=== PATIENT | female | born 1955 | race Caucasian/White ===

== ENCOUNTER 2017-05-09 15:58 | Emergency (ER) | payer MEDICARE, OTHER ==
[~2017-05-09] VITALS: Ht 160 cm; Wt 107.0 kg
[~2017-05-09 15:58] MED LIST: CALC.25 PO; Carisoprodol350 MG PO; ERGO400 PO; ESCI20 PO; ESCITALOPRAM OX20 MG PO; EXEN10PI; LORA.5 PO; Miralax17 GM PO; Neurontin 100100 MG PO; OXYACE5T PO; OXYC30 PO; OXYC5 PO; PROM25 PO
[2017-05-09] MEDS ORDERED: TRULICITY1.5 MG/0.5 SC (16:34)
[2017-05-09] MEDS ORDERED: HYDMOR8 PO (16:38)
[2017-05-09 16:50] LABS: BASOPHILS ABSOLUTE AUTO 0.04 K/mm3 (0.00-0.23); BASOPHILS PERCENT AUTO 1 % (0-2); EOSINOPHILS ABSOLUTE AUTO 0.17 K/mm3 (0.00-0.68); EOSINOPHILS PERCENT AUTO 3 % (0-6); Hematocrit 37.1 % (33.0-51.0); Hemoglobin 11.7 g/dL (11.5-16.0); IMMATURE GRAN ABSOLUTE AUTO 0.01 K/mm3 (0.00-0.10); IMMATURE GRAN PERCENT AUTO 0 % (0-1); LYMPHOCYTES ABSOLUTE AUTO 1.52 K/mm3 (0.84-5.20); LYMPHOCYTES PERCENT AUTO 25 % (21-46); MONOCYTES ABSOLUTE AUTO 0.43 K/mm3 (0.16-1.47); MONOCYTES PERCENT AUTO 7 % (4-13); Mean Corpuscular HGB 26.5 pg (26.0-34.0); Mean Corpuscular HGB Conc 31.5 g/dL (31.5-36.5); Mean Corpuscular Volume 84 fL (80-100); Mean Platelet Volume 9.9 fL (9.1-12.4); NEUTROPHILS ABSOLUTE AUTO 3.98 K/mm3 (1.96-9.15); NEUTROPHILS PERCENT AUTO 65 % (41-73); Platelet Count 297 K/mm3 (150-400); RDW Coefficient Variation 14.3 % (11.7-14.2); RDW Standard Deviation 43.9 fL (35.1-46.3); Red Blood Cell Count 4.42 M/mm3 (3.80-5.20); White Blood Cell Count 6.15 K/mm3 (4.00-11.30)
[2017-05-09 17:07] LABS: Alanine Aminotransfer (ALT/SGP 27 U/L (12-78); Albumin, Blood 2.9 g/dL (3.4-5.0); Albumin/Globulin Ratio 0.8 (0.8-1.8); Alk Phos 79 U/L (50-136); Anion Gap 8 mmol/L (6-16); Aspartate Aminotrans (AST/SGOT 15 U/L (12-37); Bilirubin, Total 0.6 mg/dL (0.1-1.0); Blood Urea Nitrogen 19 mg/dL (8-24); Bun/Creatinine Ratio 18.4 (12.0-20.0); CO2, Blood 23 mmol/L (21-32); Calcium, Blood 8.4 mg/dL (8.5-10.1); Chloride, Blood 108 mmol/L (98-108); Creatinine, Blood 1.03 mg/dL (0.40-1.00); Globulin, Blood 3.6 g/dL (2.2-4.0); Glomerular Filtration Rate 58 (60-); Glucose, Blood 110 mg/dL (70-99); Potassium, Blood 4.3 mmol/L (3.5-5.5); Sodium, Blood 139 mmol/L (136-145); Total Protein, Blood 6.5 g/dL (6.4-8.2); Troponin I <0.015 ng/mL (0.000-0.040)
[2017-05-09] MEDS ORDERED: ELIQUIS5 MG PO (18:11)
[2017-05-09] MEDS ORDERED: Flecainide Acet50 MG PO (18:12)
[2017-05-09] MEDS ORDERED: METO25ER PO (18:12)
== END 2017-05-09 18:48 | disposition home or self-care (01) ==
LOC: ER 15:58
PROVIDERS: Emergency Medicine
DX: R00.0 Tachycardia, unspecified (principal); E11.9 Type 2 diabetes mellitus without complications; I10 Essential (primary) hypertension; Z88.5 Allergy status to narcotic agent; Z88.1 Allergy status to other antibiotic agents; Z91.048 Other nonmedicinal substance allergy status; Z79.899 Other long term (current) drug therapy
CPT/HCPCS: 36415; 71046; 80053; 83735; 83880; 84484; 85025; 93005; 93010; 99283

== ENCOUNTER 2017-05-15 07:05 | Day surgery (SDC) | payer MEDICARE, OTHER ==
[~2017-05-15] VITALS: Ht 157.5 cm; Wt 108.0 kg
[~2017-05-15 07:05] MED LIST changes: +ELIQUIS5 MG PO; +Flecainide Acet50 MG PO; +HYDMOR8 PO; +METO25ER PO; +TRULICITY1.5 MG/0.5 SC
[2017-05-15] MEDS ORDERED: BACL10 PO (07:32)
[2017-05-15] MEDS ORDERED: TRAZ50 PO (07:33)
[2017-05-15] MEDS ORDERED: Amiodarone HCl400 MG PO (09:36)
== END 2017-05-15 22:39 | disposition home or self-care (01) ==
LOC: MHTC 07:05
PROC: 5A2204Z Restoration of Cardiac Rhythm, Single (ICD-10-PCS; principal; 2017-05-15)
DX: I48.92 Unspecified atrial flutter (principal); I48.0 Paroxysmal atrial fibrillation; I10 Essential (primary) hypertension; E11.9 Type 2 diabetes mellitus without complications; E78.5 Hyperlipidemia, unspecified; E66.01 Morbid (severe) obesity due to excess calories; Z98.84 Bariatric surgery status; J44.9 Chronic obstructive pulmonary disease, unspecified; Z87.891 Personal history of nicotine dependence
CPT/HCPCS: 92960; 93005; 93010; 94640; J0282; J7120

== ENCOUNTER → 2017-07-01 | Outpatient (CLI) | payer MEDICARE, OTHER ==
[~2017-07-01] MED LIST changes: +Amiodarone HCl400 MG PO; +BACL10 PO; +TRAZ50 PO
== END | disposition home or self-care (01) ==
LOC: LAB SHORT 09:56 → PLD 09:56
DX: D22.62 Melanocytic nevi of left upper limb, including shoulder (principal)
CPT/HCPCS: 88305

== ENCOUNTER → 2017-08-20 | Outpatient (CLI) | payer MEDICARE, OTHER ==
[2017-08-20 13:04] LABS: Source, Urine Catheter
[2017-08-20 13:45] LABS: Bilirubin, Urine Neg (Neg); Blood, Urine Neg (Neg); Glucose Qualitative, Urine Neg (Neg); Ketones, Urine Neg (Neg); Leukocyte Esterase, Urine Neg (Neg); Nitrite, Urine Neg (Neg); Protein, Urine Neg (Neg); Urobilinogen, Urine NORM (Normal)
[2017-08-20 14:08] LABS: Appearance, Urine Clear (Clear); Color, Urine Yellow (P-Yellow)
== END ==
LOC: LAB 13:03 → LAB SHORT 13:03
PROVIDERS: Obstetrics & Gynecology Gynecology
DX: N39.41 Urge incontinence (principal)
CPT/HCPCS: 81003

== ENCOUNTER → 2017-09-25 | Outpatient (CLI) | payer MEDICARE, OTHER ==
[2017-09-25 12:28] LABS: Source, Urine Clean Catch
[2017-09-25 14:31] LABS: Appearance, Urine Cloudy (Clear); Bilirubin, Urine Neg (Neg); Blood, Urine 5+ (Neg); Color, Urine Yellow (P-Yellow); Glucose Qualitative, Urine Neg (Neg); Ketones, Urine Neg (Neg); Leukocyte Esterase, Urine 3+ (Neg); Nitrite, Urine Neg (Neg); Protein, Urine 2+ (Neg); Urobilinogen, Urine NORM (Normal); pH, Urine 6.5 (5.0-8.0)
[2017-09-25 14:51] LABS: Red Blood Cells, Urine 25-50 /hpf (0-2); White Blood Cells, Urine 50-100 /hpf (0-5)
[2017-09-25 14:52] LABS: Bacteria Few /hpf; Squamous Epithelial Cells Rare /hpf (Few)
== END ==
LOC: LAB SHORT 12:10 → LAB 12:10
PROVIDERS: Obstetrics & Gynecology Gynecology
DX: R39.15 Urgency of urination (principal)
CPT/HCPCS: 81001; 87077; 87086; 87186

== ENCOUNTER 2018-03-09 06:01 | Emergency (ER) | payer MEDICARE, OTHER ==
[~2018-03-09] VITALS: Ht 162.6 cm; Wt 97.5 kg
[2018-03-09 07:20] LABS: BASOPHILS ABSOLUTE AUTO 0.04 K/mm3 (0.00-0.23); BASOPHILS PERCENT AUTO 1 % (0-2); EOSINOPHILS ABSOLUTE AUTO 0.17 K/mm3 (0.00-0.68); EOSINOPHILS PERCENT AUTO 2 % (0-6); Hematocrit 42.2 % (33.0-51.0); Hemoglobin 13.5 g/dL (11.5-16.0); IMMATURE GRAN ABSOLUTE AUTO 0.04 K/mm3 (0.00-0.10); IMMATURE GRAN PERCENT AUTO 1 % (0-1); LYMPHOCYTES ABSOLUTE AUTO 1.46 K/mm3 (0.84-5.20); LYMPHOCYTES PERCENT AUTO 18 % (21-46); MONOCYTES ABSOLUTE AUTO 0.42 K/mm3 (0.16-1.47); MONOCYTES PERCENT AUTO 5 % (4-13); Mean Corpuscular HGB 28.3 pg (26.0-34.0); Mean Corpuscular Volume 89 fL (80-100); Mean Platelet Volume 10.3 fL (9.1-12.4); NEUTROPHILS ABSOLUTE AUTO 6.14 K/mm3 (1.96-9.15); NEUTROPHILS PERCENT AUTO 74 % (41-73); Platelet Count 237 K/mm3 (150-400); RDW Coefficient Variation 13.8 % (11.7-14.2); RDW Standard Deviation 44.5 fL (35.1-46.3); Red Blood Cell Count 4.77 M/mm3 (3.80-5.20); White Blood Cell Count 8.27 K/mm3 (4.00-11.30)
[2018-03-09 07:32] LABS: Anion Gap 7 mmol/L (6-16); Blood Urea Nitrogen 14 mg/dL (8-24); Bun/Creatinine Ratio 13.5 (12.0-20.0); CO2, Blood 28 mmol/L (21-32); Chloride, Blood 108 mmol/L (98-108); Creatinine, Blood 1.04 mg/dL (0.40-1.00); Glomerular Filtration Rate 57 (60-); Glucose, Blood 127 mg/dL (70-99); Potassium, Blood 4.3 mmol/L (3.5-5.5); Sodium, Blood 143 mmol/L (136-145); Troponin I <0.015 ng/mL (0.000-0.040)
[2018-03-09 08:09] LABS: Bilirubin, Urine Neg (Neg); Blood, Urine 1+ (Neg); Glucose Qualitative, Urine Neg (Neg); Ketones, Urine Neg (Neg); Leukocyte Esterase, Urine 1+ (Neg); Nitrite, Urine Neg (Neg); Protein, Urine 2+ (Neg); Specific Gravity, Urine 1.015 (1.003-1.022); Urobilinogen, Urine NORM (Normal)
[2018-03-09 08:21] LABS: Appearance, Urine Clear (Clear); Color, Urine Yellow (P-Yellow)
[2018-03-09 09:21] LABS: Red Blood Cells, Urine 0-2 /hpf (0-2); Squamous Epithelial Cells Few /hpf (Few); White Blood Cells, Urine 0-2 /hpf (0-5)
[2018-03-09 09:22] LABS: Bacteria Few /hpf
[2018-03-09 09:26] LABS: Other Crystals Many /hpf
[2018-03-09] MEDS ORDERED: METO25 PO (11:13)
[2018-03-09] MEDS ORDERED: TRAZ50 PO (11:14)
[2018-03-09] MEDS ORDERED: ALEN70 PO (11:14)
[2018-03-09] MEDS ORDERED: OXYMORPHONE HCL5 MG PO (11:14)
[2018-03-09] MEDS ORDERED: Tambocor100 MG PO (11:16)
[2018-03-09] MEDS ORDERED: FLUC100 PO (11:17)
== END 2018-03-09 14:50 | disposition short-term general hospital (02) ==
LOC: ER 06:01
PROVIDERS: Emergency Medicine
DX: I62.01 Nontraumatic acute subdural hemorrhage (principal); I48.91 Unspecified atrial fibrillation; E11.9 Type 2 diabetes mellitus without complications; I10 Essential (primary) hypertension; M19.90 Unspecified osteoarthritis, unspecified site; F17.200 Nicotine dependence, unspecified, uncomplicated; Z91.048 Other nonmedicinal substance allergy status; Z88.5 Allergy status to narcotic agent; Z88.1 Allergy status to other antibiotic agents; Z88.8 Allergy status to other drugs, medicaments and biological substances; Z79.899 Other long term (current) drug therapy; Z79.01 Long term (current) use of anticoagulants
CPT/HCPCS: 36415; 70450; 71045; 72070; 80048; 81001; 84484; 85025; 87086; 87147; 93005; 93010; 96361; 96374; 96375; 99285-25; J1885; J2405; J3010; J7030

== ENCOUNTER 2018-05-06 17:24 | Inpatient (IN) | payer MEDICARE, OTHER ==
[~2018-05-06] VITALS: Ht 160 cm; Wt 93.6 kg
[~2018-05-06 17:24] MED LIST changes: -ATOR20 PO; -Cyclobenzaprine5 MG PO; -OMEPRAZOLE MAGN20 MG PO; -THERA1 EACH PO
[2018-05-06 19:45] LABS: Calcium, Ionized (POC) 1.08 mmol/L (1.10-1.46); Chloride (POC) 85 mmol/L (98-108); Creatinine (POC) 0.9 mg/dL (0.6-1.0); Glucose (ISTAT POC) 119 mg/dL (70-99); Hemoglobin (POC) 14.3 g/dL (12.0-16.0); Potassium (POC) 4.8 mmol/L (3.5-5.5); Sodium (POC) 120 mmol/L (135-148); Total CO2 (POC) 25 mmol/L (21-32)
[2018-05-06] MEDS ORDERED: Cyclobenzaprine5 MG PO (21:29)
[2018-05-06] MEDS ORDERED: ATOR20 PO (21:31)
[2018-05-06 21:35] LABS: Magnesium, Blood 1.8 mg/dL (1.6-2.4); Uric Acid, Blood 3.6 mg/dL (2.6-6.0)
[2018-05-06] MEDS ORDERED: OMEPRAZOLE MAGN20 MG PO (21:38)
[2018-05-06] MEDS ORDERED: THERA1 EACH PO (22:11)
[2018-05-06 22:41] LABS: Source, Urine Clean Catch
[2018-05-06 22:46] LABS: Bilirubin, Urine Neg (Neg); Blood, Urine 1+ (Neg); Glucose Qualitative, Urine Neg (Neg); Ketones, Urine 3+ (Neg); Leukocyte Esterase, Urine Neg (Neg); Nitrite, Urine Neg (Neg); Protein, Urine 1+ (Neg); Specific Gravity, Urine 1.015 (1.003-1.022); Urobilinogen, Urine NORM (Normal)
[2018-05-06 22:51] LABS: Appearance, Urine Clear (Clear); Color, Urine Yellow (P-Yellow)
[2018-05-06 22:53] LABS: Bacteria Rare /hpf; Red Blood Cells, Urine 0-2 /hpf (0-2); Squamous Epithelial Cells Few /hpf (Few); White Blood Cells, Urine Not Seen /hpf (0-5)
--- NOTE | 2018-05-07 01:18 | NUR ---
UPDATE PATIENT SODIUM AT 121. CHARGE NURSE JONATHAN HUDSON AWARE AND SATED THERE WAS NO NEED TO NOTIFY THE DR AT THIS TIME. WE WILL CONTINUE TO MONITOR AT THIS TIME.
[2018-05-07 04:52] LABS: Anion Gap 10 mmol/L (6-16); Blood Urea Nitrogen 13 mg/dL (8-24); Bun/Creatinine Ratio 17.2 (12.0-20.0); CO2, Blood 21 mmol/L (21-32); Calcium, Blood 7.9 mg/dL (8.5-10.1); Chloride, Blood 92 mmol/L (98-108); Creatinine, Blood 0.76 mg/dL (0.40-1.00); Glomerular Filtration Rate >60 (60-); Glucose, Blood 102 mg/dL (70-99); Sodium, Blood 123 mmol/L (136-145)
[2018-05-07 04:54] LABS: Troponin I <0.015 ng/mL (0.000-0.040)
--- NOTE | 2018-05-07 06:31 | NUR ---
SHIFT SUMMARY PATIENT ADMITTED EARLIER THIS SHIFT. PATIENT PLEASENT AND COOPERATIVE UPON ADMIT. PATIENT ABLE TO AMBULATE INTO THE BATHROOM WITH ONE PERSON ASSIST. HOWEVER, PATIENT DOES REPORT THE SHE, "GOT A LITTLE DIZZY" WHILE SHE WAS UP. PATIENT ON RA THROUGHOUT THE NIGHT. PATIETN APPEARED TO SLEEP WELL LAST NIGHT. IV FLUIDS GIVEN PER EMAR. VITAL SIGNS CHARTED. WILL CONTINUE TO MONITOR PATIENT AND REPORT TO ONCOMING RN.
--- NOTE | 2018-05-07 17:32 | NUR ---
SHIFT SUMMARY PT ALERT AND ORIENTED. VITAL SIGNS STABLE. PT ABLE TO TRANSFER TO BATHROOM NEEDED WITH SBA. PT WORKED WITH OT TODAY. NA OF 123 THIS MORNING. SODIUM REPLACEMENT CHANGED FROM IV TO ORAL SEE EMAR. PT COMPLAINED OF NAUSEA THIS SHIFT, BUT NO VOMITTING. NO OTHER CHANGES SINCE INITIAL ASSESSMENT. WILL CONTINUE TO MONITOR AND REPORT TO ONCOMING RN. CALL LIGHT IN REACH.
[2018-05-08 04:18] LABS: Anion Gap 8 mmol/L (6-16); Blood Urea Nitrogen 10 mg/dL (8-24); Bun/Creatinine Ratio 12.1 (12.0-20.0); CO2, Blood 23 mmol/L (21-32); Calcium, Blood 8.1 mg/dL (8.5-10.1); Chloride, Blood 101 mmol/L (98-108); Creatinine, Blood 0.82 mg/dL (0.40-1.00); Glomerular Filtration Rate >60 (60-); Glucose, Blood 111 mg/dL (70-99); Potassium, Blood 3.8 mmol/L (3.5-5.5); Sodium, Blood 132 mmol/L (136-145)
--- NOTE | 2018-05-08 07:12 | NUR ---
SHIFT SUMMARY PATIENT PLEASENT LAST NIGHT. PATIENT APPEARED TO SLEEP WELL THROUGHOUT THE NIGHT WITH NO COMPLAINTS OF PAIN. PATIENT UP TO THE BSC SEVERAL TIMES WITH SBA. VITAL SIGNS CHARTED. WILL CONTINUE TO MONITOR PATIENT AND REPORT TO ONCOMING RN.
[2018-05-08] MEDS ORDERED: Oxcarbazepine300 MG PO (07:45)
--- NOTE | 2018-05-08 14:52 | NUR ---
PT GIVEN DISCHARGE INSTRUCTIONS. NO NEW MEDICATIONS. PT EDUCATED ABOUT HYPONATREMIA SIGNS/ SYMPTOMS AND WHEN TO RETURN. IV REMOVED AND INTACT. ALL QUESTIONS ANSWERED. PT ABLE TO LEAVE BY AMBULATION.
== END 2018-05-08 14:50 | disposition home or self-care (01) | DRG 644 ==
LOC: ER 17:24 → PCU 21:12
PROVIDERS: Emergency Medicine; Internal Medicine; Nurse Practitioner Acute Care; ADMIT Hospitalist
DX: E22.2 Syndrome of inappropriate secretion of antidiuretic hormone (principal); S22.070A Wedge compression fracture of T9-T10 vertebra, initial encounter for closed fracture; G50.0 Trigeminal neuralgia; M79.7 Fibromyalgia; M19.90 Unspecified osteoarthritis, unspecified site; I48.0 Paroxysmal atrial fibrillation; E86.0 Dehydration; N18.3 Chronic kidney disease, stage 3 (moderate); E11.22 Type 2 diabetes mellitus with diabetic chronic kidney disease; I12.9 Hypertensive chronic kidney disease with stage 1 through stage 4 chronic kidney disease, or unspecified chronic kidney disease; Z79.84 Long term (current) use of oral hypoglycemic drugs; T42.1X5A Adverse effect of iminostilbenes, initial encounter; Y92.9 Unspecified place or not applicable
CPT/HCPCS: 36415; 70450; 71046; 80047; 80048; 81001; 82330; 82947; 83735; 83930; 83935; 84295; 84300; 84484; 84550; 85014; 93005; 93010; 96361; 96374; 97161; 97165; 97530; 97535; 99285-25; J2405; J2765; J3475; J7030

== ENCOUNTER → 2018-05-06 | Outpatient (CLI) | payer MEDICARE, OTHER ==
[~2018-05-06] MED LIST changes: +ALEN70 PO; +ATOR20 PO; +Cyclobenzaprine5 MG PO; +FLUC150A PO; +GABA400 PO; +METO25 PO; -Neurontin 100100 MG PO; +OMEPRAZOLE MAGN20 MG PO; +OXYMORPHONE HCL5 MG PO; +THERA1 EACH PO; +Tambocor100 MG PO
[2018-05-06 15:08] LABS: BASOPHILS ABSOLUTE AUTO 0.02 K/mm3 (0.00-0.23); BASOPHILS PERCENT AUTO 0 % (0-2); EOSINOPHILS ABSOLUTE AUTO 0.02 K/mm3 (0.00-0.68); EOSINOPHILS PERCENT AUTO 0 % (0-6); Hematocrit 42.4 % (33.0-51.0); Hemoglobin 15.1 g/dL (11.5-16.0); IMMATURE GRAN ABSOLUTE AUTO 0.02 K/mm3 (0.00-0.10); IMMATURE GRAN PERCENT AUTO 0 % (0-1); LYMPHOCYTES ABSOLUTE AUTO 1.34 K/mm3 (0.84-5.20); LYMPHOCYTES PERCENT AUTO 19 % (21-46); MONOCYTES ABSOLUTE AUTO 0.34 K/mm3 (0.16-1.47); MONOCYTES PERCENT AUTO 5 % (4-13); Mean Corpuscular HGB 28.4 pg (26.0-34.0); Mean Corpuscular HGB Conc 35.6 g/dL (31.5-36.5); Mean Corpuscular Volume 80 fL (80-100); Mean Platelet Volume 9.9 fL (9.1-12.4); NEUTROPHILS ABSOLUTE AUTO 5.46 K/mm3 (1.96-9.15); NEUTROPHILS PERCENT AUTO 76 % (41-73); Platelet Count 307 K/mm3 (150-400); RDW Coefficient Variation 12.9 % (11.7-14.2); RDW Standard Deviation 36.3 fL (35.1-46.3); Red Blood Cell Count 5.31 M/mm3 (3.80-5.20)
[2018-05-06 15:21] LABS: Alanine Aminotransfer (ALT/SGP 36 U/L (12-78); Albumin, Blood 3.8 g/dL (3.4-5.0); Albumin/Globulin Ratio 0.9 (0.8-1.8); Alk Phos 132 U/L (40-126); Aspartate Aminotrans (AST/SGOT 27 U/L (12-37); Bilirubin, Total 1.1 mg/dL (0.1-1.0); Blood Urea Nitrogen 16 mg/dL (8-24); Bun/Creatinine Ratio 12.9 (12.0-20.0); CO2, Blood 23 mmol/L (21-32); Calcium, Blood 8.9 mg/dL (8.5-10.1); Chloride, Blood 83 mmol/L (98-108); Creatinine, Blood 1.24 mg/dL (0.40-1.00); Globulin, Blood 4.3 g/dL (2.2-4.0); Glomerular Filtration Rate 44 (60-); Glucose, Blood 147 mg/dL (70-99); Total Protein, Blood 8.1 g/dL (6.4-8.2)
[2018-05-06 15:40] LABS: Anion Gap 12 mmol/L (6-16)
[2018-05-06 15:41] LABS: Troponin I <0.017 ng/mL (0.000-0.040)
[2018-05-06 15:43] LABS: Sodium, Blood 118 mmol/L (136-145)
== END | disposition home or self-care (01) ==
LOC: LAB SHORT 15:02 → LAB EV 15:02
PROVIDERS: Physician Assistant
DX: R10.13 Epigastric pain (principal)
CPT/HCPCS: 80053; 83690; 84484; 85025

== ENCOUNTER → 2018-07-16 | Outpatient (CLI) | payer MEDICARE, OTHER ==
[~2018-07-16] MED LIST changes: +ATOR20 PO; +Cyclobenzaprine5 MG PO; +OMEPRAZOLE MAGN20 MG PO; +Oxcarbazepine300 MG PO; +THERA1 EACH PO
[2018-07-16 14:40] LABS: Source, Urine Clean Catch
[2018-07-16 16:50] LABS: Appearance, Urine Hazy (Clear); Blood, Urine 2+ (Neg); Glucose Qualitative, Urine Neg (Neg); Ketones, Urine Neg (Neg); Leukocyte Esterase, Urine Neg (Neg); Nitrite, Urine Pos (Neg); Protein, Urine 1+ (Neg); Urobilinogen, Urine 3+ (Normal)
[2018-07-16 17:19] LABS: Bilirubin, Urine 2+ (Neg); Color, Urine Orange (P-Yellow)
[2018-07-16 17:40] LABS: White Blood Cells, Urine 25-50 /hpf (0-5)
[2018-07-16 18:00] LABS: Red Blood Cells, Urine 0-2 /hpf (0-2)
[2018-07-16 18:01] LABS: Bacteria Many /hpf; Squamous Epithelial Cells Few /hpf (Few)
[2018-07-16 18:04] LABS: Hyaline Casts 0-2 /lpf (0-2); Transitional Epithelial Cells Few /hpf (0-Rare)
== END | disposition home or self-care (01) ==
LOC: LAB 14:30 → LAB SHORT 14:30
PROVIDERS: Obstetrics & Gynecology Gynecology
DX: R39.15 Urgency of urination (principal)
CPT/HCPCS: 81001; 87077; 87086; 87147; 87186

== ENCOUNTER → 2018-08-05 | Outpatient (CLI) | payer MEDICARE, OTHER ==
[~2018-08-05] MED LIST changes: +HYDR1TAB94 PO
[2018-08-07 14:06] LABS: HPV 16 Negative (Negative); HPV 18 Negative (Negative); HPV OTHER HR TYPES Negative (Negative)
== END | disposition home or self-care (01) ==
LOC: LAB SHORT 18:34 → LAB 18:34
PROVIDERS: Nurse Practitioner Women's Health
DX: Z12.4 Encounter for screening for malignant neoplasm of cervix (principal); E66.01 Morbid (severe) obesity due to excess calories; Z91.89 Other specified personal risk factors, not elsewhere classified
CPT/HCPCS: 87624; G0123

== ENCOUNTER 2018-09-05 11:29 | Emergency (ER) | payer MEDICARE, OTHER ==
[~2018-09-05] VITALS: Ht 160 cm; Wt 93.0 kg
[~2018-09-05 11:29] MED LIST changes: -HYDR1TAB94 PO
[2018-09-05] MEDS ORDERED: HYDR1TAB94 PO (13:37)
== END 2018-09-05 14:15 | disposition home or self-care (01) ==
LOC: ER 11:29
DX: S42.202A Unspecified fracture of upper end of left humerus, initial encounter for closed fracture (principal); M85.812 Other specified disorders of bone density and structure, left shoulder; M19.90 Unspecified osteoarthritis, unspecified site; E11.9 Type 2 diabetes mellitus without complications; I10 Essential (primary) hypertension; F17.200 Nicotine dependence, unspecified, uncomplicated; Z91.048 Other nonmedicinal substance allergy status; Z88.5 Allergy status to narcotic agent; Z88.8 Allergy status to other drugs, medicaments and biological substances; Z88.1 Allergy status to other antibiotic agents; Z79.899 Other long term (current) drug therapy; W18.30XA Fall on same level, unspecified, initial encounter
CPT/HCPCS: 36415; 73030; 73080; 96372-59; 96374; 96375; 99283-25; J1170; J2405

== ENCOUNTER 2018-09-09 21:29 | Emergency (ER) | payer MEDICARE, OTHER ==
[~2018-09-09] VITALS: Ht 162.6 cm; Wt 96.2 kg
[~2018-09-09 21:29] MED LIST changes: +HYDR1TAB94 PO
== END 2018-09-09 23:35 | disposition home or self-care (01) ==
LOC: ER 21:29
DX: S09.90XA Unspecified injury of head, initial encounter (principal); S42.212A Unspecified displaced fracture of surgical neck of left humerus, initial encounter for closed fracture; S42.252A Displaced fracture of greater tuberosity of left humerus, initial encounter for closed fracture; S42.262A Displaced fracture of lesser tuberosity of left humerus, initial encounter for closed fracture; W19.XXXA Unspecified fall, initial encounter; Z91.048 Other nonmedicinal substance allergy status; Z88.5 Allergy status to narcotic agent; Z88.8 Allergy status to other drugs, medicaments and biological substances; Z88.1 Allergy status to other antibiotic agents; Z79.899 Other long term (current) drug therapy; E11.9 Type 2 diabetes mellitus without complications; I10 Essential (primary) hypertension
CPT/HCPCS: 70450; 73030; 96374; 96375; 99284-25; J1170; J3010

== ENCOUNTER 2018-09-14 09:52 | Emergency (ER) | payer MEDICARE, OTHER ==
[~2018-09-14] VITALS: Ht 162.6 cm; Wt 94.8 kg
== END 2018-09-14 13:45 | disposition home or self-care (01) ==
LOC: ER 09:52
DX: K59.00 Constipation, unspecified (principal); Z88.8 Allergy status to other drugs, medicaments and biological substances; Z88.5 Allergy status to narcotic agent; Z88.1 Allergy status to other antibiotic agents; Z91.048 Other nonmedicinal substance allergy status; Z79.899 Other long term (current) drug therapy; E11.9 Type 2 diabetes mellitus without complications; I10 Essential (primary) hypertension; F17.210 Nicotine dependence, cigarettes, uncomplicated
CPT/HCPCS: 74018; 99283-25

== ENCOUNTER → 2019-02-08 | Outpatient (CLI) | payer MEDICARE, OTHER ==
[2019-02-08 12:56] LABS: Calcium, Urine <5.0 mg/dL (< 17.5); Calcium, Urine Calculation Unable to Calculate mg/24hrs (42.0-353.0)
== END | disposition home or self-care (01) ==
LOC: LAB 10:31 → LAB SHORT 10:31 → LAB FUT 01-19 14:05
PROVIDERS: Internal Medicine Endocrinology, Diabetes & Metabolism
DX: E21.3 Hyperparathyroidism, unspecified (principal); M81.0 Age-related osteoporosis without current pathological fracture; E11.3393 Type 2 diabetes mellitus with moderate nonproliferative diabetic retinopathy without macular edema, bilateral
CPT/HCPCS: 81050; 82340

== ENCOUNTER → 2019-11-30 | Outpatient (CLI) | payer MEDICARE, OTHER | END | disposition home or self-care (01) | LOC: PLD 11:36 → LAB SHORT 11:36 | DX: D22.62 Melanocytic nevi of left upper limb, including shoulder (principal) | CPT/HCPCS: 88305 ==

== ENCOUNTER → 2020-01-02 | Outpatient (CLI) | payer MEDICARE, OTHER ==
[2020-01-04 16:22] LABS: CORONAVIRUS (COVID19) CSH-NRL Negative (Negative)
== END | disposition home or self-care (01) ==
LOC: LAB SHORT 16:58 → PLD 16:58
PROVIDERS: Physician Assistant Medical
DX: Z20.828 Contact with and (suspected) exposure to other viral communicable diseases (principal)
CPT/HCPCS: U0003

== ENCOUNTER 2020-02-21 09:34 | Day surgery (SDC) | payer MEDICARE, OTHER ==
[~2020-02-21] VITALS: Ht 160 cm; Wt 93.6 kg
[2020-02-21] MEDS ORDERED: DILT120 PO (10:09)
[2020-02-21] MEDS ORDERED: Amiodarone HCl200 MG PO (10:11)
[2020-02-21] MEDS ORDERED: ERGO50000 PO (10:12)
--- NOTE | 2020-02-21 13:31 | NUR ---
PT AWAKE, ALERT, AND TALKATIVE. UP TO BATHROOM WITHOUT PROBLEMS, STEADY ON FEET. SALINE LOCK REMOVED WITH CATHETER INTACT. DISCHARGE INSTRUCTIONS REVIEWED WITH PT, VERBALIZES UNDERSTANDING OF INSTRUCTIONS. TO PRIVATE VEHICLE PER W/C WITH ONE STAFF.
== END 2020-02-21 23:09 | disposition home or self-care (01) ==
LOC: MHTC 09:34
DX: I48.0 Paroxysmal atrial fibrillation (principal); Z79.01 Long term (current) use of anticoagulants; Z79.899 Other long term (current) drug therapy; Z88.1 Allergy status to other antibiotic agents; Z88.5 Allergy status to narcotic agent; Z88.8 Allergy status to other drugs, medicaments and biological substances; Z91.048 Other nonmedicinal substance allergy status
CPT/HCPCS: 82947; 92960; J2704; J7120

== ENCOUNTER → 2020-03-21 | Outpatient (CLI) | payer MEDICARE, OTHER ==
[~2020-03-21] MED LIST changes: +Amiodarone HCl200 MG PO; +DILT120 PO; +ERGO50000 PO
== END | disposition home or self-care (01) ==
LOC: LAB SHORT 11:20 → LAB 11:20
DX: N39.0 Urinary tract infection, site not specified (principal)
CPT/HCPCS: 87077; 87086; 87186

== ENCOUNTER 2020-05-01 10:48 | Emergency (ER) | payer MEDICARE, OTHER ==
[~2020-05-01] VITALS: Ht 157.5 cm; Wt 89.4 kg
== END 2020-05-01 12:44 | disposition home or self-care (01) ==
LOC: ER 10:48
DX: R00.2 Palpitations (principal); I48.91 Unspecified atrial fibrillation; E11.42 Type 2 diabetes mellitus with diabetic polyneuropathy; E11.22 Type 2 diabetes mellitus with diabetic chronic kidney disease; I12.9 Hypertensive chronic kidney disease with stage 1 through stage 4 chronic kidney disease, or unspecified chronic kidney disease; N18.30 Chronic kidney disease, stage 3 unspecified; Z91.09 Other allergy status, other than to drugs and biological substances; Z88.5 Allergy status to narcotic agent; Z79.899 Other long term (current) drug therapy
CPT/HCPCS: 93005; 93010; 99284-25

== ENCOUNTER → 2020-11-29 | Outpatient (CLI) | payer MEDICARE, OTHER | END | disposition home or self-care (01) | LOC: LAB SHORT 15:45 | DX: D22.5 Melanocytic nevi of trunk (principal) | CPT/HCPCS: 88305 ==

== ENCOUNTER 2021-08-01 07:16 | Day surgery (SDC) | payer MEDICARE, OTHER ==
[~2021-08-01] VITALS: Ht 157.5 cm; Wt 94.5 kg
[2021-08-01] MEDS ORDERED: AMIODARONE HCL100 M3 PO (07:47)
[2021-08-01] MEDS ORDERED: METO50ER (07:50)
== END 2021-08-01 09:30 | disposition home or self-care (01) ==
LOC: ORSCSDS 07:16
PROVIDERS: Ophthalmology
PROC: 08RJ3JZ Replacement of Right Lens with Synthetic Substitute, Percutaneous Approach (ICD-10-PCS; principal; 2021-08-01 08:30)
DX: H25.13 Age-related nuclear cataract, bilateral (principal); I50.9 Heart failure, unspecified; I48.91 Unspecified atrial fibrillation; E13.319 Other specified diabetes mellitus with unspecified diabetic retinopathy without macular edema; H40.9 Unspecified glaucoma; Z79.01 Long term (current) use of anticoagulants; Z79.899 Other long term (current) drug therapy
CPT/HCPCS: 82947; 93005; 93010; J2001; J2250; J3010; J3301; J7040; V2632

== ENCOUNTER → 2022-12-18 | Outpatient (CLI) | payer MEDICARE, OTHER ==
[~2022-12-18] MED LIST changes: +AMIODARONE HCL100 M3 PO; +METO50ER PO; +OMEP20ER PO; -OMEPRAZOLE MAGN20 MG PO; +PACERONE100 M1 PO
== END | disposition home or self-care (01) ==
LOC: LAB 12:00 → LAB SHORT 12:00
DX: J20.9 Acute bronchitis, unspecified (principal)
CPT/HCPCS: 87070; 87205

== ENCOUNTER 2024-01-21 15:24 | Emergency (ER) | payer MEDICARE, OTHER ==
[~2024-01-21] VITALS: Ht 165.1 cm; Wt 77.1 kg
[~2024-01-21 15:24] MED LIST changes: +DOFE500 PO; +FURO40 PO; +Lisinopril2.5 MG PO; +METO100 PO; +ROXICODONE15 MG PO
[2024-01-21 16:36] LABS: BASOPHILS ABSOLUTE AUTO 0.02 K/mm3 (0.00-0.23); BASOPHILS PERCENT AUTO 0 % (0-2); EOSINOPHILS ABSOLUTE AUTO 0.01 K/mm3 (0.00-0.68); EOSINOPHILS PERCENT AUTO 0 % (0-6); Hematocrit 42.2 % (33.0-51.0); Hemoglobin 13.6 g/dL (11.5-16.0); IMMATURE GRAN ABSOLUTE AUTO 0.02 K/mm3 (0.00-0.10); IMMATURE GRAN PERCENT AUTO 0 % (0-1); LYMPHOCYTES ABSOLUTE AUTO 0.78 K/mm3 (0.84-5.20); LYMPHOCYTES PERCENT AUTO 15 % (21-46); MONOCYTES ABSOLUTE AUTO 0.49 K/mm3 (0.16-1.47); MONOCYTES PERCENT AUTO 9 % (4-13); Mean Corpuscular HGB 27.5 pg (26.0-34.0); Mean Corpuscular HGB Conc 32.2 g/dL (31.5-36.5); Mean Corpuscular Volume 85 fL (80-100); Mean Platelet Volume 9.6 fL (9.1-12.4); NEUTROPHILS ABSOLUTE AUTO 4.02 K/mm3 (1.96-9.15); NEUTROPHILS PERCENT AUTO 75 % (41-73); Platelet Count 188 K/mm3 (150-400); RDW Standard Deviation 43.1 fL (35.1-46.3); Red Blood Cell Count 4.95 M/mm3 (3.80-5.20); White Blood Cell Count 5.34 K/mm3 (4.00-11.30)
[2024-01-21 16:48] LABS: Albumin, Blood 3.1 g/dL (3.4-5.0); Albumin/Globulin Ratio 0.7 (0.8-1.8); Bilirubin, Total 0.9 mg/dL (0.1-1.0); Bun/Creatinine Ratio 15.8 (12.0-20.0); Calcium, Blood 8.4 mg/dL (8.5-10.1); Creatinine, Blood 1.01 mg/dL (0.40-1.00); Globulin, Blood 4.3 g/dL (2.2-4.0); Potassium, Blood 3.4 mmol/L (3.5-5.5); Total Protein, Blood 7.4 g/dL (6.4-8.2)
[2024-01-21] MEDS ORDERED: Lactated Ringer's 500 ML IV ONE (17:20)
[2024-01-21 18:29] LABS: Influenza B, PCR NEGATIVE (NEGATIVE); Resp Syncytial Virus, PCR NEGATIVE (NEGATIVE); SARS-Cov-2 (COVID-19) PCR, MMC NEGATIVE (NEGATIVE)
[2024-01-21 20:26] LABS: Influenza A, PCR POSITIVE (NEGATIVE)
[2024-01-21 20:45] VITALS: BP 104/58
[2024-01-21] MEDS ORDERED: RX Prepack Albuterol 1 PREPACK/6.7 GM INH UD ONE (20:45)
== END 2024-01-21 20:59 | disposition home or self-care (01) ==
LOC: ER 15:24
PROVIDERS: Emergency Medicine; Student in an Organized Health Care Education/Training Program
DX: J09.X2 Influenza due to identified novel influenza A virus with other respiratory manifestations (principal); I50.9 Heart failure, unspecified; E11.39 Type 2 diabetes mellitus with other diabetic ophthalmic complication; H42 Glaucoma in diseases classified elsewhere; I11.0 Hypertensive heart disease with heart failure; I48.91 Unspecified atrial fibrillation; M19.90 Unspecified osteoarthritis, unspecified site; Z87.891 Personal history of nicotine dependence; Z79.899 Other long term (current) drug therapy; Z88.2 Allergy status to sulfonamides; Z88.5 Allergy status to narcotic agent; Z91.048 Other nonmedicinal substance allergy status; Z88.1 Allergy status to other antibiotic agents; Z88.8 Allergy status to other drugs, medicaments and biological substances
CPT/HCPCS: 0241U; 71046; 80053; 84484; 85025; 93005; 93010; 96360; 96361; 99285-25; A9270; J7120

== ENCOUNTER → 2024-02-05 | Outpatient (CLI) | payer MEDICARE, OTHER ==
[2024-02-05 16:12] LABS: BASOPHILS ABSOLUTE AUTO 0.06 K/mm3 (0.00-0.23); BASOPHILS PERCENT AUTO 1 % (0-2); EOSINOPHILS ABSOLUTE AUTO 0.14 K/mm3 (0.00-0.68); EOSINOPHILS PERCENT AUTO 2 % (0-6); Hematocrit 43.7 % (33.0-51.0); Hemoglobin 13.7 g/dL (11.5-16.0); IMMATURE GRAN ABSOLUTE AUTO 0.02 K/mm3 (0.00-0.10); IMMATURE GRAN PERCENT AUTO 0 % (0-1); LYMPHOCYTES ABSOLUTE AUTO 1.53 K/mm3 (0.84-5.20); LYMPHOCYTES PERCENT AUTO 20 % (21-46); MONOCYTES ABSOLUTE AUTO 0.46 K/mm3 (0.16-1.47); MONOCYTES PERCENT AUTO 6 % (4-13); Mean Corpuscular HGB 27.7 pg (26.0-34.0); Mean Corpuscular HGB Conc 31.4 g/dL (31.5-36.5); Mean Corpuscular Volume 88 fL (80-100); Mean Platelet Volume 9.3 fL (9.1-12.4); NEUTROPHILS PERCENT AUTO 71 % (41-73); Platelet Count 351 K/mm3 (150-400); RDW Coefficient Variation 14.6 % (11.7-14.2); RDW Standard Deviation 46.3 fL (35.1-46.3); Red Blood Cell Count 4.95 M/mm3 (3.80-5.20); White Blood Cell Count 7.61 K/mm3 (4.00-11.30)
[2024-02-05 16:27] LABS: Albumin, Blood 3.3 g/dL (3.4-5.0); Albumin/Globulin Ratio 0.8 (0.8-1.8); Bilirubin, Total 1.2 mg/dL (0.1-1.0); Bun/Creatinine Ratio 18.8 (12.0-20.0); Calcium, Blood 9.1 mg/dL (8.5-10.1); Creatinine, Blood 1.28 mg/dL (0.40-1.00); Globulin, Blood 4.2 g/dL (2.2-4.0); Total Protein, Blood 7.5 g/dL (6.4-8.2)
== END ==
LOC: LAB SHORT 16:07 → LAB 16:07
PROVIDERS: Physician Assistant
DX: R00.0 Tachycardia, unspecified (principal)
CPT/HCPCS: 80053; 85025

== ENCOUNTER 2024-11-03 17:52 | Observation (INO) | payer MEDICARE, OTHER ==
[~2024-11-03] VITALS: Ht 167.6 cm; Wt 81.8 kg
[2024-11-03 18:24] LABS: BASOPHILS ABSOLUTE AUTO 0.03 K/mm3 (0.00-0.23); BASOPHILS PERCENT AUTO 0 % (0-2); EOSINOPHILS ABSOLUTE AUTO 0.14 K/mm3 (0.00-0.68); EOSINOPHILS PERCENT AUTO 2 % (0-6); Hematocrit 38.1 % (33.0-51.0); Hemoglobin 13.1 g/dL (11.5-16.0); IMMATURE GRAN ABSOLUTE AUTO 0.03 K/mm3 (0.00-0.10); IMMATURE GRAN PERCENT AUTO 0 % (0-1); LYMPHOCYTES ABSOLUTE AUTO 1.29 K/mm3 (0.84-5.20); LYMPHOCYTES PERCENT AUTO 14 % (21-46); MONOCYTES ABSOLUTE AUTO 0.44 K/mm3 (0.16-1.47); MONOCYTES PERCENT AUTO 5 % (4-13); Mean Corpuscular HGB Conc 34.4 g/dL (31.5-36.5); Mean Corpuscular Volume 84 fL (80-100); NEUTROPHILS ABSOLUTE AUTO 7.29 K/mm3 (1.96-9.15); NEUTROPHILS PERCENT AUTO 79 % (41-73); NRBC ABSOLUTE 0.00 K/mm3 (0.00-0.02); NRBC Auto 0.0 /100 WBC (0.0-0.2); Platelet Count 272 K/mm3 (150-400); RDW Coefficient Variation 13.9 % (11.7-14.2); RDW Standard Deviation 42.6 fL (35.1-46.3)
[2024-11-03 18:39] LABS: Prothrombin Time Results 12.0 Sec (9.7-11.5)
[2024-11-03 18:46] LABS: pH Blood Venous 7.39 (7.34-7.37)
[2024-11-03 18:55] LABS: Ethanol (Alcohol), Blood, Med <3 mg/dL
[2024-11-03 19:01] LABS: Source, Urine Straight Cath
[2024-11-03 19:08] LABS: Bilirubin, Urine Neg (Neg); Glucose Qualitative, Urine Neg (Neg); Ketones, Urine Neg (Neg); Leukocyte Esterase, Urine Neg (Neg); Protein, Urine Neg (Neg); Specific Gravity, Urine 1.015 (1.003-1.022); Urobilinogen, Urine NORM (Normal)
[2024-11-03 19:15] LABS: Color, Urine Pale Yellow (P-Yellow)
[2024-11-03 19:18] LABS: Alanine Aminotransfer (ALT/SGP 34 U/L (12-78); Albumin, Blood 3.2 g/dL (3.4-5.0); Albumin/Globulin Ratio 0.7 (0.8-1.8); Anion Gap 8 mmol/L (3-11); Aspartate Aminotrans (AST/SGOT 64 U/L (12-37); Bilirubin, Total 0.8 mg/dL (0.1-1.0); Blood Urea Nitrogen 14 mg/dL (8-24); CO2, Blood 29 mmol/L (21-32); Calcium, Blood 9.6 mg/dL (8.5-10.1); Chloride, Blood 98 mmol/L (98-108); Creatinine, Blood 0.81 mg/dL (0.40-1.00); Globulin, Blood 4.4 g/dL (2.2-4.0); Glucose, Blood 152 mg/dL (70-99); Potassium, Blood 4.9 mmol/L (3.5-5.5); Sodium, Blood 130 mmol/L (136-145); Total Protein, Blood 7.6 g/dL (6.4-8.2)
[2024-11-03 19:20] LABS: U Amphetamine Screen Not Detected; U Barbituate Screen Not Detected; U Benzodiazapine Screen Not Detected; U Buprenorphine Screen Not Detected; U Cannabinoids Screen Not Detected; U Cocaine Screen Not Detected; U Methadone Screen Not Detected; U Methamphetamine Screen Not Detected; U Opiates Screen Not Detected; U Oxycodone Screen Not Detected; U Phencyclidine Screen Not Detected
[2024-11-03] MEDS ORDERED: NS 1,000 ML IV ONE (20:05)
[2024-11-03] MEDS ORDERED: NS 1,000 ML IV SCH (20:15)
[2024-11-03] MEDS ORDERED: FLU VACC TS2025-26(6MOS UP)/PF 45 MCG/0.5 ML SYRINGE IM SCH (20:15)
[2024-11-03] MEDS ORDERED: Ondansetron HCl 2 MG / ML 2ML Vial IV PRN (20:15)
[2024-11-03] MEDS ORDERED: Labetalol HCL 5 MG/ML 4ML Injection (Single Dose) IV PRN (20:15)
[2024-11-03] MEDS ORDERED: Albuterol 2.5 MG/3 ML VIAL INH PRN (20:20)
[2024-11-03] MEDS ORDERED: Ketorolac Tromethamine 15mg Vial IV PRN (20:30)
[2024-11-03 21:32] LABS: Influenza A, PCR NEGATIVE (NEGATIVE); Influenza B, PCR NEGATIVE (NEGATIVE); Resp Syncytial Virus, PCR NEGATIVE (NEGATIVE); SARS-Cov-2 (COVID-19) PCR, MMC NEGATIVE (NEGATIVE)
[2024-11-03 23:53] LABS: pH Blood Venous 7.37 (7.34-7.37)
[2024-11-04] MEDS ORDERED: Insulin Human Lispro 100 Units/ML 3ML Syringe SC SCH
[2024-11-04 04:32] VITALS: BP 123/79
[2024-11-04] MEDS ORDERED: MOUNJARO10 MG/0.5 SC (04:51)
[2024-11-04 04:57] LABS: BASOPHILS ABSOLUTE AUTO 0.04 K/mm3 (0.00-0.23); BASOPHILS PERCENT AUTO 0 % (0-2); EOSINOPHILS ABSOLUTE AUTO 0.15 K/mm3 (0.00-0.68); EOSINOPHILS PERCENT AUTO 2 % (0-6); Hematocrit 41.6 % (33.0-51.0); Hemoglobin 13.1 g/dL (11.5-16.0); IMMATURE GRAN ABSOLUTE AUTO 0.02 K/mm3 (0.00-0.10); IMMATURE GRAN PERCENT AUTO 0 % (0-1); LYMPHOCYTES ABSOLUTE AUTO 2.20 K/mm3 (0.84-5.20); LYMPHOCYTES PERCENT AUTO 25 % (21-46); MONOCYTES ABSOLUTE AUTO 0.80 K/mm3 (0.16-1.47); MONOCYTES PERCENT AUTO 9 % (4-13); Mean Corpuscular HGB Conc 31.5 g/dL (31.5-36.5); NEUTROPHILS ABSOLUTE AUTO 5.77 K/mm3 (1.96-9.15); NEUTROPHILS PERCENT AUTO 64 % (41-73); NRBC ABSOLUTE 0.00 K/mm3 (0.00-0.02); NRBC Auto 0.0 /100 WBC (0.0-0.2); Platelet Count 241 K/mm3 (150-400); RDW Coefficient Variation 13.8 % (11.7-14.2); RDW Standard Deviation 46.4 fL (35.1-46.3)
[2024-11-04 04:59] LABS: Mean Corpuscular Volume 91 fL (80-100)
[2024-11-04 05:15] LABS: Alanine Aminotransfer (ALT/SGP 27.0 U/L (12-78); Albumin, Blood 3.0 g/dL (3.4-5.0); Albumin/Globulin Ratio 0.9 (0.8-1.8); Anion Gap 6.0 mmol/L (3-11); Aspartate Aminotrans (AST/SGOT 24.0 U/L (12-37); Bilirubin, Total 0.7 mg/dL (0.1-1.0); Blood Urea Nitrogen 12.0 mg/dL (8-24); CO2, Blood 31.0 mmol/L (21-32); Calcium, Blood 8.5 mg/dL (8.5-10.1); Chloride, Blood 104.0 mmol/L (98-108); Creatinine, Blood 0.81 mg/dL (0.40-1.00); Globulin, Blood 3.5 g/dL (2.2-4.0); Glucose, Blood 107.0 mg/dL (70-99); Magnesium, Blood 2.2 mg/dL (1.6-2.4); Potassium, Blood 4.0 mmol/L (3.5-5.5); Sodium, Blood 137.0 mmol/L (136-145); Total Protein, Blood 6.5 g/dL (6.4-8.2)
--- NOTE | 2024-11-04 06:05 | NUR ---
SHIFT SUMMARY REPORT RECIEVED FROM SOFTWARE CONFIGURATION ENGINEER. PT ARRIVED TO PCU AT 0423. PT WAS SLID FROM ER GURNEY TO BED. PT ALERT, OREINTED TO SELF, PLACE, SITUATION. SHE IS CONFUSED AT TIMES. POOR HISTORIAN. HR IN THE 80'S, SR WITH PAC'S, SHE DENIES ANY CP/PRESSURE, SBP STABLE. SPO2 >92 ON 2L VIA NC. PT DESATS WITH SLEEP. SHE HAS ESPINOZA IN PLACE, DRAINING YELLOW URINE TO GRAVITY. PT HAS FLUIDS INFUSING [ER EMAR. INTERMITTENT PAIN DUE TO TN, MEDICATING PER EMAR. PT RESTING IN BED AT THIS TIME. CALL LIGHT IN REACH. WILL MONITOR PT AND REPORT TO ONCOMING RN.
[2024-11-04 07:31] VITALS: BP 121/66
--- NOTE | 2024-11-04 10:15 | NUR ---
DISCHARGE NOTE: PT AND PT'S SISTER STATE VERBAL UNDERSTANDING OF DISCHARGE INSTRUCTIONS. PT TO FOLLOW UP WITH PCP ON . PIVS, ESPINOZA, AND TELE REMOVED PRIOR TO DISCHARGE. PT DENIES ANY QUESTIONS OR CONCERNS AT TIME OF DISCHARGE. BUILDING REPAIR MAINTENANCE SUPERVISOR TO ESCORT PT TO PERSONAL VEHICLE.
== END 2024-11-04 10:05 | disposition home or self-care (01) ==
LOC: ER 17:52 → ERHOLD 17:53 → PCU 17:53
PROVIDERS: Emergency Medicine; Nurse Practitioner Acute Care; ADMIT Internal Medicine
DX: G92.8 Other toxic encephalopathy (principal); E11.9 Type 2 diabetes mellitus without complications; I50.9 Heart failure, unspecified; I48.0 Paroxysmal atrial fibrillation; R00.0 Tachycardia, unspecified; E87.1 Hypo-osmolality and hyponatremia; G50.0 Trigeminal neuralgia; I11.0 Hypertensive heart disease with heart failure; G89.4 Chronic pain syndrome; Z88.5 Allergy status to narcotic agent; Z88.8 Allergy status to other drugs, medicaments and biological substances; Z88.2 Allergy status to sulfonamides; Z91.048 Other nonmedicinal substance allergy status; Z79.01 Long term (current) use of anticoagulants; Z79.899 Other long term (current) drug therapy
CPT/HCPCS: 36415; 51702; 70450; 71045; 72125; 80053; 80320; 81003; 82803; 82947; 83735; 84443; 85025; 85610; 87637; 93005; 93010; 96374; 99285-25; A9270; G0378; J1885; J7030